=== PATIENT | male | born 1970 | race Caucasian/White ===

== ENCOUNTER 2024-06-20 10:58 | Emergency (ER) | payer OTHER, SELFPAY ==
[2024-06-20] VITALS (13 sets, daily range): BP systolic 91–114; BP diastolic 61–89; BMI 30.1
[2024-06-20] MEDS: NSS 500 IV (11:25)
--- NOTE | 2024-06-20 11:34 | ED.GENMED ---
History of Present Illness
General
Chief Complaint: Heart Rate Problem
Source: patient and spouse
Exam Limitations: none
Time Seen by Provider: 06/20/24 11:12
Nursing documentation reviewed up to this point in time: agreed with
History of Present Illness
History of Present Illness:
54-year-old male with a past medical history of atrial fibrillation, GERD who presents to the emergency room with his for evaluation of palpitations and tachycardia. Patient reports abrupt onset of symptoms last night before bed and they have
been constant since that time. He reports palpitations and sense of racing heart. He reports mild associated shortness of breath. He denies any chest pain. He denies any dizziness or lightheadedness. He says that he had identical symptoms with
A-fib in the past but has not had an issue for almost 30 years�he says he had 1 episode of atrial fibrillation when he was living in [place] at age 27 that started while he was golfing; he says he went to the ER at that time and had rate control and
was admitted and converted to sinus rhythm after a few days. He says he was anticoagulated with Lovenox for 6 months afterwards and then told he no longer required anticoagulation. He has not been on anticoagulation since. 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 Vee.
Past History
Past History
ED Past Medical History: GERD
ED Past Surgical History: Negative Cardiac
Social History
Tobacco: Non-smoker
Alcohol: Occasional
Drug: None
Personal:
Living: with family
Employment: Employed
Family History
Family History: Other (Noncontributory)
Review of Systems
Review of Systems
All Other Systems: ROS reviewed and negative except as documented in HPI and ROS
Constitutional: Denies fever or chills
Respiratory: Reports trouble breathing; Denies cough
Cardiac: Reports palpitations; Denies chest pain or syncope
ABD/GI: Denies abdominal pain, nausea or vomiting
: Denies flank pain
Musculoskeletal: Denies neck pain or back pain
Neurological: Denies dizzy or headache
Phy Exam
Physical Exam
Physical Exam:
General: Awake, alert, oriented x3; no acute distress
Head: Normocephalic, atraumatic
Eyes: Conjunctiva normal, sclera anicteric
Throat: Airway intact, moist mucous membranes
Neck: Trachea midline, supple without meningismus
Lungs: Clear to auscultation bilaterally, no wheezing, rales, rhonchi
Heart: Tachycardia with irregularly irregular rhythm, no murmurs, gallops, or rubs
Abd: Soft, non distended, nontender
Neuro: No gross deficits
Extremities: No edema in extremities, warm and well-perfused
Scores
[id number] Score for Afib Stroke Risk
Age in Years (65=0, 65-74=1, >/=75=2): <65
Sex (Female=+1): Male
Congestive Heart Failure History (Yes=+1): No
Hypertension History (Yes=+1): No
Stroke/TIA/Thromboembolism History (Yes=+2): No
Vascular Disease History (Yes=+1): No
Diabetes Mellitus (Yes=+1): No
Score: 0
Anticoagulation Recommendations: Anticoagulation not indicated (as validated in nonvalvular afib). Consider anticoagulation irrespective of score in patients with HCM
Heart Failure Risk
Heart Failure Risk Score: Not Applicable
Heart Score for Chest Pain Patients
STEMI patient?: Not applicable
Withdrawal Assessment of Alcohol
Withdrawal Assessment Completed?: Not applicable
Course
Orders/Labs/Results
Orders:
Orders
06/20/24 10:59
ECG [Electrocardiogram (*1)] Urgent
Reason for Study: Palpitations
EKG- Treatment ONCE
06/20/24 11:13
0.9% Sodium Chloride 500 ml [Nss] 500 ml IV BOLUS
06/20/24 11:23
Complete Blood Count/With Diff Urgent
Comprehensive Metabolic Panel Urgent
Magnesium Urgent
PTT Urgent
Prothrombin Time Urgent
06/20/24 11:46
Propofol [Diprivan] 40 ml .ROUTE .STK-MED
06/20/24 12:24
Apixaban [Eliquis] 5 mg PO ONCE ONE
06/20/24 12:30
Propofol [Diprivan] 60 mg IV NOW STA
06/20/24 12:31
Propofol [Diprivan] 20 mg IV NOW STA
06/20/24 12:33
EKG [Electrocardiogram (*1)] Urgent
Reason for Study: Atrial Fibrillation
EKG- Treatment ONCE
06/20/24 13:12
Case Management Consult ONCE
Case Management Consult: Discharge Planning
Abnormal Lab Results
06/20/24
11:23
Absolute Lymphs (auto) 3.6 H 10^3/uL
(1.2-3.4)
Absolute Monos (auto) 0.7 H 10^3/uL
(0.1-0.6)
Glucose 109 H mg/dl
(70-99)
ALT 53 H U/L
(0-50)
06/20/24 11:23
06/20/24 11:23
Vital Signs
Initial and Last Documented VS:
Initial Vital Signs
Temp Pulse Resp BP Pulse Ox
36.6 C 82 18 100/73 96
06/20/24 11:03 06/20/24 11:03 06/20/24 11:03 06/20/24 11:03 06/20/24 11:03
Last Documented Vital Signs
Temp Pulse Resp BP Pulse Ox
36.7 C 86 22 101/71 95
06/20/24 13:10 06/20/24 13:15 06/20/24 13:15 06/20/24 13:15 06/20/24 13:15
Procedures
Cardioversion
Indication:: Afib
Performed by:: Darrell Kuhn MD
Synchronized?: Yes
Energy Used: 200 joules
Number of attempts: 1
Successful?: Yes
ASA Risk Score: Class I
Any reaction or bad outcome to prior sedation/anesthesia?: No history of a reaction
Sedation level to be attained: moderate
Chart and allergies reviewed: Yes
Patient reassessed prior to sedation: Yes
Time out completed at (validating right patient & procedure): 12:30
History of difficult intubation: No
Airway free of obstruction: Yes
Patient has a gag reflex: Yes
Patient is able to open mouth: Yes
Patient has no dentures: Yes
Patient has no loose teeth: Yes
Medication administered by Provider during Moderate Sedation: IV Propofol (mg)
Total dose administered: 80
Time drug administered: 12:30
Start Time: 12:30
Stop Time: 12:41
MDM/Problems Addressed
Differential Diagnosis Includes:
Atrial fibrillation
MDM/Problems Addressed:
54-year-old male presents to the emergency room with palpitations and tachycardia, dyspnea similar to prior A-fib symptoms. He arrived was tachycardic with heart rate 120s to 140s. Normotensive. Physical exam as above. EKG reviewed shows A-fib
with RVR. IV placed labs sent off including a CBC and a CMP. Case discussed with cardiology�although he has no anticoagulation on board he had rather abrupt onset within 24 hours; furthermore his [id number] score is 0. Therefore they feel patient
is a reasonable candidate for elective ED cardioversion. I do long discussion with the patient about risks and benefits of procedure and he is agreeable. Will proceed with trial of ED cardioversion. Cardiology is recommending starting on Eliquis
and metoprolol status post cardioversion and they will follow-up with patient in the office.
Patient cardioverted successfully as documented in procedure note. Asymptomatic after procedure, EKG confirms sinus rhythm. Will continue to monitor after cardioversion.
Patient remains in sinus rhythm, awake alert after sedation. Tolerating p.o. Ambulatory with steady gait. Stable for discharge at this point in time. Will follow-up with cardiology as above with medications as recommended by cardiology. I did
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 All questions answered.
Chronic conditions affecting care:
Atrial fibrillation
*Pulse Oximetry
Patient hypoxic: no
*EKG
Interpreted by ED Provider?: Yes
Heart Rate: 132
Rate: tachycardiac
Rhythm: a-fib
[place]: normal axis
Interval: normal interval
QRS Pattern: normal QRS
Ischemia: non-specific ST changes
*Critical Care Note
Total Time (30-74mins, 75-104mins- exclusive of procedures): Not Applicable
Data Reviewed
Source: patient, records and spouse
Patient Management
Discussion with other providers: Hide Washer (Discussed with cardiology)
ED Attending Note
-
Portions of this chart may have been created with voice recognition software.� Occasional wrong word or��sound alike� substitutions may have occurred due to the inherent limitations of voice recognition software.
Discharge Plan
Departure
Patient Disposition: Home (Routine Discharge)
Date of Disposition: 06/20/24
Time of Disposition: 13:23
Patient with high blood pressure during this ER visit?: No
Discharge Problem:
Atrial fibrillation status post cardioversion
Instructions: Atrial Fibrillation (DC)
Prescriptions:
New
Eliquis 5 mg tablet
5 mg PO BID Qty: 60 0RF
metoprolol succinate 25 mg tablet extended release 24 hr
25 mg PO DAILY Qty: 30 0RF
No Action
pantoprazole 40 MG tablet,delayed release (DR/EC)
40 mg PO BID
acetaminophen 325 MG tablet
650 mg PO Q6HPRN PRN (Reason: mildpain,fever)
zinc 50 MG tablet
50 mg PO DAILY
albuterol sulfate 1 PUFF HFA aerosol inhaler
2 puff inhalation R Q4HPRN PRN (Reason: sob)
cholecalciferol (vitamin D3) 2,000 UNITS tablet
2,000 units PO DAILY
prednisone 10 MG tablet
10 mg PO .TAPER Qty: 20 0RF
Rx Instructions:
Take 40mg daily x2days, 30mg daily x2days,
20mg daily x2days, 10mg daily x2days.
dextromethorphan-guaifenesin 10 ML syrup
10 ml PO Q4HPRN PRN (Reason: cough ) Qty: 1 0RF
famotidine 20 MG tablet
20 mg PO BID 0RF
ascorbic acid (vitamin C) [Vitamin C] 500 MG tablet
1,000 mg PO BID 0RF
benzonatate 100 MG capsule
200 mg PO TID Qty: 30 0RF
Rx Instructions:
take 200mg (2 tabs)
melatonin 5 MG tablet
5 mg PO DAILY@2000 0RF
budesonide-formoterol [Symbicort] 1 PUFF HFA aerosol inhaler
2 puff inhalation R BID Qty: 1 0RF
Referrals:
Donald Arriaga MD [Active] - Call in 1-3 days for appt
Activity Restrictions/Additional Instructions:
Thank you for visiting the Emergency Department at [facility].
1. Please schedule a follow up appointment as directed. Call first thing tomorrow morning to make an appointment.
2. If indicated, please take your medications as instructed and indicated on discharge paperwork.
3. If any of your symptoms do not improve, or persist, or become more severe within 6-12 hours, please return to the emergency department for further care.
4. Please return to the emergency department if you develop a headache, neck pain/stiffness, fever greater than 100.4F, chest pain, shortness of breath, persistent nausea, vomiting, slurred speech, difficulty walking, numbness/tingling, weakness,
signs of infection or any other symptoms that are worrisome to you.
Please call [phone] if you have any questions.
Interventions
Interventions:
*Risk Screen - Suicide Last Done: 06/20/24 11:03
*General Assessment Last Done: 06/20/24 11:03
*Neglect/Abuse Screening Last Done: 06/20/24 11:03
ED- Fall Risk Assessment Last Done: 06/20/24 11:27
*ED COVID-19 Vaccine History Last Done: 06/20/24 11:03
ED- Cardiac Assessment Last Done: 06/20/24 11:27
ED- Pulmonary Assessment Last Done: 06/20/24 11:27
Discharge Date and Time
Print Language: [place]
[2024-06-20 11:44] LABS: % Eosinophils 1.6 % (0-6); % Immature Granulocytes 0.3 % (0-0.5); % Lymphocytes 38.2 % (20.5-51.1); % Monocytes 7.6 % (1.7-9.3); % Neutrophils 51.3 % (42.2-75.2); Absolute Basophils 0.1 10^3/uL (0-0.2); Absolute Eosinophils 0.2 10^3/uL (0-0.7); Absolute Lymphocytes 3.6 10^3/uL (1.2-3.4); Absolute Monocytes 0.7 10^3/uL (0.1-0.6); Absolute Neutrophils 4.8 10^3/uL (1.4-6.5); Hematocrit 50.9 % (39.0-52.0); Hemoglobin 17.8 g/dL (13.0-18.0); Mean Corpuscular Hgb 29.7 pg (27.0-31.0); Mean Corpuscular Volume 84.8 fL (80.0-94.0); Mean Platelet Volume 9.3 fL (7.4-10.4); Nucleated Red Blood Cells % 0 % (-); Platelet Count 298 10^3/uL (130-400); Red Cell Dist. Width 12.8 % (11.5-14.5); White Blood Cell Count 9.4 10^3/uL (4.8-10.8)
[2024-06-20 11:54] LABS: APTT 26.3 Sec (23.4-35.0); INR 0.93; PT 12.8 Sec (11.4-14.6)
[2024-06-20 12:06] LABS: ALT (SGPT) 53 U/L (0-50); AST (SGOT) 33 U/L (17-59); Albumin 4.5 g/dl (3.5-5.0); Alkaline Phosphatase 61 U/L (38-126); Blood Urea Nitrogen 18 mg/dl (9-20); Calcium 9.9 mg/dl (8.4-10.2); Carbon Dioxide 27 mmol/L (22-30); Chloride 104 mmol/L (98-107); Estimated Creatinine Clearance 91 ml/min; Glucose 109 mg/dl (70-99); Magnesium 2.1 mg/dl (1.6-2.3); Potassium 4.3 mmol/L (3.5-5.1); Sodium 139 mmol/L (135-145); Total Bilirubin 0.8 mg/dl (0.2-1.3); Total Protein 6.9 g/dl (6.3-8.2); eGFR > 60.00
[2024-06-20] MEDS: DIPRIVAN 60 MG IV (12:30)
[2024-06-20] MEDS: DIPRIVAN 20 MG IV (12:31)
--- NOTE | 2024-06-20 12:38 | EDRN ---
1232 PT SYNCHRONIZED CARDIOVERTED WITH 200J BY MD MARTIN. PT TOLERATED MODERATE SEDATION.
[2024-06-20] MEDS: ELIQUIS 5 MG PO (13:19)
--- NOTE | 2024-06-20 13:28 | CM ---
ED CM consulted for Eliquis
CM attempted to verify coverage with [employer]- closed on weekends
Bedside meeting with pt and spouse
30 day card, co pay card and assistance brochure info provided
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
Update to Dr. Kuhn
== END 2024-06-20 13:35 | disposition home or self-care (01) ==
LOC: EMR 10:58
PROVIDERS: EMERGENCY PHYSICIAN Emergency Medicine; FAMILY PHYSICIAN Internal Medicine
DX: I48.91 Unspecified atrial fibrillation (principal); R06.02 Shortness of breath; K21.9 Gastro-esophageal reflux disease without esophagitis; J45.909 Unspecified asthma, uncomplicated; Z86.16 Personal history of COVID-19
CPT/HCPCS: 92960; 99285; 96360; 99152; 80053; 83735; 85025; 85610; 85730; 93005

== ENCOUNTER → 2024-08-28 11:03 | Outpatient (REF) | payer OTHER, SELFPAY | LOC: HWRCS 11:03 | PROVIDERS: ATTENDING PHYSICIAN Internal Medicine; FAMILY PHYSICIAN Internal Medicine | DX: I48.0 Paroxysmal atrial fibrillation (principal) | CPT/HCPCS: 93306 ==